=== PATIENT | male | born 1980 | race Caucasian/White ===

== ENCOUNTER 2022-07-29 08:18 | Emergency (ER) | payer OTHER ==
[2022-07-29] MEDS ORDERED: Sodium Chloride 0.9% 2.5 ML Syringe FLUSH PRN (09:10)
[2022-07-29] MEDS ORDERED: Sodium Chloride 0.9% 1,000 ML IV ONE (09:10)
[2022-07-29] MEDS ORDERED: Ondansetron 4 MG/2 ML SDV IVPUSH ONE (09:10)
[2022-07-29] MEDS ORDERED: Sodium Chloride 0.9% 10 ML Syringe FLUSH PRN (09:10)
[2022-07-29] MEDS ORDERED: Ketorolac 30 MG/ML SDV IVPUSH ONE (09:11)
[2022-07-29 10:32] LABS: CARBON DIOXIDE,CO2 29.8 mmol/L (21.0-32.0); POTASSIUM,K 4.3 mmol/L (3.5-5.1)
== END 2022-07-29 11:46 | disposition home or self-care (01) ==
LOC: MW.ED 08:18
DX: K57.30 Diverticulosis of large intestine without perforation or abscess without bleeding (principal); J45.909 Unspecified asthma, uncomplicated; Z88.8 Allergy status to other drugs, medicaments and biological substances; Z79.51 Long term (current) use of inhaled steroids; Z72.0 Tobacco use
CPT/HCPCS: 36415; 74176; 80053; 81001; 83690; 85025; 96361; 96374; 96375; 99284; J1885; J2405; J3490; J7030; 99283